=== PATIENT | male | born 1995 ===

== ENCOUNTER → 2022-02-02 | Outpatient (REF) | payer OTHER ==
[2022-02-02 13:46] LABS: SEMEN APPEARANCE OPAQUE (OPAQUE); SEMEN VISCOSITY LIQUID (LIQUID); SEMEN VOLUME 3.5 ml (2.0-5.0); WBC CONCENTRATION <=1 M/ml (<=1 M/ml)
[2022-02-02 13:47] LABS: SPERM CONCENTRATION 58.3 M/ml (>=15.0)
== END ==
LOC: M LAB REF 13:36
DX: Z31.9 Encounter for procreative management, unspecified (principal)